=== PATIENT | male | born 1980 | race Caucasian/White ===

== ENCOUNTER 2017-05-21 15:13 | Emergency (ER) | payer OTHER ==
[~2017-05-21] VITALS: Ht 193 cm; Wt 129.5 kg
[2017-05-21 15:23] VITALS: BP 165/89; PULSE 96; RESP 16; TEMP 98; O2SAT 97
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
[2017-05-21] MEDS ORDERED: CYCL10TA PO (17:24)
[2017-05-21] MEDS ORDERED: IBUP1TAB7 PO (17:24)
[2017-05-21] MEDS ORDERED: TRAM50TA PO (17:24)
[2017-05-21] MEDS ORDERED: KETOROLAC TROMETHAMINE 60 MG/2 ML (IM) VIAL IM ONE (17:30)
[2017-05-21] MEDS ORDERED: TETANUS/DIPHTHERIA TOXOID ADULT 0.5 ML VIAL IM ONE (17:30)
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
== END 2017-05-21 17:55 | disposition home or self-care (01) ==
LOC: NEPD 15:13
DX: S39.012A Strain of muscle, fascia and tendon of lower back, initial encounter (principal); S76.011A Strain of muscle, fascia and tendon of right hip, initial encounter; S93.401A Sprain of unspecified ligament of right ankle, initial encounter; V63.5XXA Driver of heavy transport vehicle injured in collision with car, pick-up truck or van in traffic accident, initial encounter; Y99.0 Civilian activity done for income or pay; Z23 Encounter for immunization
CPT/HCPCS: 72110; 73502; 73590; 73630; 90471; 90714; 96372; 99284; J1885